=== PATIENT | male | born 1975 | race Caucasian/White ===

== ENCOUNTER 2020-08-31 01:45 | Emergency (ER) | payer OTHER, SELFPAY ==
[2020-08-31] VITALS (7 sets, daily range): BP systolic 114–135; BP diastolic 73–90; PULSE 62–66; RESP 16–18; TEMP 36.8; O2SAT 98–100; BMI 29.9
--- NOTE | 2020-08-31 02:10 | ED_ITS ---
HPI - General Adult General Chief complaint: General Medical Stated complaint: LBP Time Seen by Provider: 08/31/20 01:49 Source: patient Mode of arrival: EMS Limitations: no limitations History of Present Illness HPI narrative: patient comes to emergency room complaining of chronic back pain. Patient sustained a back injury last month in July, patient was seen in [facility] in [place]. according to the patient, he was in bed for 2 days, given pain medications, patient decided to leave against medical advice. Patient comes today to our emergency room requesting short-term rehab. Patient denies urinary /fecal retention or incontinence. patient has significant history of back surgeries, including L4/L5 decompression and microlumbar discectomy due to disc herniation in December of 2006 per previous notes MD complaint: back pain Related Data Home Medications Medication Instructions Recorded Confirmed naloxone [Narcan] 1 spray INTRANASAL 08/31/20 Allergies Allergy/AdvReac Type Severity Reaction Status Date / Time No Known Allergies Allergy Mild NKA Unverified 06/09/20 15:27 [No Known Allergies*] Review of Systems Review of Systems: Constitutional : No Weight loss, No Fever, No Chills, No Night Sweats, No Fatigue, No Malaise ENT/Mouth : No Hearing loss, No Ear Pain, No Nasal Congestion, No Sinus Pain, No Hoarseness, No sore throat, No Rhinorrhea, No Swallowing Difficulty Eyes: No Eye Pain, No Swelling, No Redness, No Foreign Body, No Discharge, No Vision Changes Cardiovascular : No Chest Pain, No SOB, No Dyspnea on Exertion, No Orthopnea, No Edema, No Palpitations Respiratory : No Cough, No Sputum, No Wheezing, No Smoke Exposure, No Dyspnea Gastrointestinal : No Nausea, No Vomiting, No Diarrhea, No Constipation, No abdominal Pain, No Hematochezia, No Melena Genitourinary : no irregular bleeding, No Dysuria, No Urinary Frequency, No Hematuria, No Urinary Incontinence, No Urgency, No Flank Pain, No Urinary Flow Changes, No Hesitancy Musculoskeletal : complaining of chronic back pain, thoracic and lumbar Skin : No Skin Lesions, No rash Neuro : No Weakness, No Numbness, No Paresthesias, No Loss of Consciousness, No Dizziness, No Headache Psych : No Anxiety/Panic, No Depression, No SI/HI/AH/VH, No Social Issues, Heme/Lymph: No Bruising, No Bleeding,No Lymphadenopathy Endocrine : No Polyuria, No Polydipsia, No Temperature Intolerance [facility] Past Medical History Medical History (Updated 08/31/20 @ 05:00 by Ness Ross MD) Hepatitis C Heroin abuse Surgical History (Updated 08/31/20 @ 02:18 by Ness Ross MD) History of lumbar laminectomy for spinal cord decompression Social History Social History Alcohol intake: former Smoking Status: Current every day smoker Use of substances other than those prescribed or required for medical reasons: Refusing to respond Substance Use Type: Heroin and IV Drugs Last Used Substance: Unknown Advance Directives: No Physical Exam Vital Signs: Vital Signs: Last Vital Signs Temp 98.3 F 08/31/20 01:47 Pulse 62 08/31/20 02:39 Resp 18 08/31/20 02:39 BP 135/90 H 08/31/20 01:47 Pulse Ox 100 08/31/20 02:39 Body Mass Index 29.9 Appearance: Alert. Oriented X3. No acute distress. patient lying down in bed, refusing to move Eyes: Pupils equal, round and reactive to light. ENT: Pharynx normal. Neck: Normal inspection. Neck supple. No lymph nodes noted. No crepitus CVS: Normal heart rate and rhythm. Pulses normal. Normal S1 and S2 Respiratory: No respiratory distress. Breath sounds normal. Abdomen: Nontender. No rigidity. No distention. good BS x4, abdominal binder in place Skin: Skin warm and dry. Normal skin color. Normal skin turgor. Extremities: No lower extremity edema. No lower extremity edema. No Lacerations. No Rash Neuro: Oriented X 3. No motor deficit. No sensory deficit. Moving all extermities. No slurred speech. Course Course Course Narrative: records from [facility] have been requested. patient has been offered Toradol for pain, patient refused, states the only thing that helps are narcotics. patient states that when he was in [facility], he was getting 2 mg of morphine every 2 hours. I discussed with the patient that we will not be doing that high dose prescription here in the emergency room. I offered a 1 time dose of 4 mg of morphine, patient accepts. patient declined Tylenol, patient declined Toradol, declined tramadol. we received records from [facility], patient was admitted on August 03, patient left against medical advice on July 27. Patient was admitted for acute on chronic back pain, patient has had stimulator device implanted in 1995. Lumbar spine CT on July 25 showed no evidence of epidural, paraspinal or extraluminal abscess and no evidence of fracture or malalignment. CT lumbar spine did show mild to moderate spinal stenosis at L4 L5 due to posterior disc bulging and face it hypertrophic changes. MRI of the lumbar spine could not be obtained because he has a neurostimulator. Discharge Plan Discharge Clinical Impression: Chronic back pain Prescriptions: No Action Narcan 4 mg/actuation spray,non-aerosol 1 spray intranasal RF: 0
--- NOTE | 2020-08-31 02:24 | PC.NURSE ---
patient arrives by cord fire after leaving ama from [facility]. Per patient they didnt do anything for me. Pt requested that he be given non-narcotic medication for pain control. Pt offered tyenol/motrin- pt refused they dont' do anything for me. Pt refused ketorolac, see note in mar. if I have to take narcotics, i will. I haven't slept in two days.
--- NOTE | 2020-08-31 03:05 | PC.NURSE ---
pt refused po tylenol and po tramadol. Per patient they gave me that at [facility] and it didn't work. They gave me morphine every two hours. Patient then stated i'm going to leave ama. Provider to bedside. 1 time dose of im morphine to be given.
[2020-08-31] MEDS: Morphine Sulfate 4 MG/ML CARTRIDGE IM (03:10)
--- NOTE | 2020-08-31 03:28 | PC.NURSE ---
pt was able to get self out of bed to shut curtain without assistance. patient reports no effect from morphine at this time. montioring for effect.
--- NOTE | 2020-08-31 03:56 | PC.NURSE ---
pt is sleeping at this itme.
[2020-08-31 05:31] LABS: Basophils Percent Auto 0.2 % (0-2); Eosinophils Absolute Auto 0.1 X10*3/uL (0.0-0.4); Hematocrit 30.4 % (42-52); Hemoglobin 10.1 g/dl (14.0-18.0); Imm Gran Abs Auto 0.02 X10*3/uL (0.00-0.03); Imm Gran Pct Auto 0.3 % (0.0-0.4); Lymphocytes Absolute Auto 1.2 X10*3/uL (1.2-4.9); Lymphocytes Percent Auto 20.6 % (20-40); Mean Corpuscular HGB Conc 33.2 g/dl (31.0-36.0); Mean Corpuscular Hemoglobin 27.8 pg (27.0-33.0); Mean Corpuscular Volume 83.7 fL (80-98); Mean Platelet Volume 8.8 fL (9.4-12.4); Monocytes Absolute Auto 0.5 X10*3/uL (0.1-1.2); Monocytes Percent Auto 8.6 % (2-11); Neutrophils Percent Auto 69.3 % (45-73); Platelet Count 382 X10*3/uL (160-400); Red Blood Count 3.63 X10*6/uL (4.60-5.80); Red Cell Distribution Width 12.1 % (11.0-16.0); White Blood Count 5.7 X10*3/uL (4.8-10.8)
[2020-08-31 05:32] LABS: MANUAL DIFF FLAG NO
[2020-08-31 06:06] LABS: Anion Gap 12 (12-20); Blood Urea Nitrogen 7 mg/dL (9-16); Calcium 7.9 mg/dL (8.4-10.2); Carbon Dioxide 26 mmol/L (22-29); Chloride 104 mmol/L (96-108); Creatinine Clr Calc Pharmacy 119.5; Estimated Glomerular Filt Rate > 60; Glucose Random 100 mg/dL (60-115); Potassium 3.7 mmol/l (3.3-5.1); Sodium 138 mmol/L (135-145)
--- NOTE | 2020-08-31 06:12 | PC.NURSE ---
pt is now awake and intermittently calling out oh fuck/oh god pt has been able to reposition self in bed without difficulty. call rabago is in reach.
[2020-08-31] MEDS: oxyCODONE HCl Immed Release 5 MG TABLET 10 MG PO ×2 (07:19→14:15)
[2020-08-31 07:37] LABS: Glucose Urine UA NEG (NEG); Leukocyte Esterase Urine NEG (NEG); Nitrite Urine NEG (NEG); Urine Blood NEG (NEG); Urine Ketones NEG (NEG); Urine Protein NEG (NEG-TRACE)
[2020-08-31 07:38] LABS: Appearance Urine CLEAR; Color Urine YELLOW
[2020-08-31 08:04] LABS: Amphetamine Screen Urine Not Detected (Not Detect); Barbiturates, Urine Not Detected (Not Detect); Benzodiazepines Screen Urine Not Detected (Not Detect); Cannabinoid Screen Urine Not Detected (Not Detect); Cocaine Screen Urine POSITIVE (Not Detect); Opiate Screen Urine POSITIVE (Not Detect); Phencyclidine Screen Urine Not Detected (Not Detect)
--- NOTE | 2020-08-31 09:10 | PC.NURSE ---
PT REFUSING TO GO TO REHAB STATES HE NEEDS SURGERY BEFORE HE CAN GO TO REHAB, HAS BEEN EXPLAINED TO PT THAT HE HAS A CHRONIC BACK CONDITION AND REHAB WILL HELP STRENGTHEN MOBILITY. PT IS VERY HOSTILE WITH STAFF CONTINUES TO STATE WE DONT KNOW WHAT WERE DOING
--- NOTE | 2020-08-31 09:21 | MHC.CM.ED ---
Addendum entered by Tiarra Lal 08/31/20 09:44: Pt is not willing to go to STR for Physical Therapy Original Note: Met with pt. Pt initially refusing to speak with CM due to pain. Pt twisting and moving in bed. Pt tells CM is will no go to STR for therapy until we fix his back. It is broken. I need surgery. I want to see a surgeon . CM rephrased his comments to be sure I understood his concerns. Restating you are refusing PT at this time until to can have surgery for your broken back and you want to see a surgeon . Pt states CM understands him. Asked pt if he was actively using drugs and he said last night. Pt tells me he is essentially homeless, staying with people . States he does not have a back doctor . Refuses to complete a HCP. When asked about recent hospitalization is [facility], pt states they did nothing for me for days and I just laid in the bed . CM told pt I would relay his concerns to the doctor. Dr. Vasques aware of this conversation and will speak with patient.
--- NOTE | 2020-08-31 09:29 | MHC.CM.ED ---
CM went with Dr. Vasques to speak with patient about STR and pt concerns. Pt stated he wanted surgery. Dr. Vasques spoke with pt at length about needing rehab, about not having a neurosurgery service at [facility], and his lack of neuro deficits that who make surgery the plan of care. Dr. Vasques asked about pt stay in [place] and tests they completed. Asked why he didn't stay there. Pt astates they did nothing for him. Pt requested to be transferred to [facility] and Dr. Vasques tried to explain that what he needed was rehab, not surgery. Pt then states he would go home and is calling is . Pt is not . Dr. Vasques will d/c pt home.
--- NOTE | 2020-08-31 10:27 | PC.NURSE ---
WENT INTO DISCHARGE PT AND NOW STATING HE WANTS TO GO TO REHAB. DR MANZO AND SAMIR[facility]EMENT AWARE
--- NOTE | 2020-08-31 10:36 | MHC.CM.ED ---
When RN attempted to d/c pt, pt stated he would go to rehab. Referrals broadcasted, as this patient my be difficult to place secondary to current IV drug use. Pt states he has never been to rehab and has no recommendations for facilities. Will continue to follow for d/c needs
[2020-08-31] MEDS: Morphine Sulfate ER 15 MG TABLET.ER PO (11:04)
--- NOTE | 2020-08-31 11:28 | MHC.CARE ---
Recovery Support note: Patient is a 45 year old [place] speaking male who presented to [facility] due to chronic back pain. Patient reports using heroin IV and states that he uses due to his level of pain. Patient reports that if he were not in pain he would not be using. Patient acknowledges the danger involved in using street drugs. Current plan is for CM to try and find a rehab for patient to strengthen his back so that his pain is reduced. Patient is agreeable at this time however expresses concern regarding whether he would get pain medication at rehab.
--- NOTE | 2020-08-31 11:28 | PC.NURSE ---
CARE TEAM IN TO ASSESS PATIENT NEEDS
--- NOTE | 2020-08-31 15:30 | PC.NURSE ---
continues to wait for bed placement at rehab
--- NOTE | 2020-08-31 15:41 | PC.NURSE ---
PATIENT REFUSED VITALS ,NURSE AWARE.
--- NOTE | 2020-08-31 15:51 | MHC.CM.ED ---
[facility] following. Waiting for authorization. Broadcasted to 18 agencies, only [facility] responded to follow. Will continue to follow for d/c needs
--- NOTE | 2020-08-31 15:57 | MHC.CM.ED ---
Pt signed out AMA. Dr. Vasques spoke with pt request him to say. Wheelchair to lobby. Pt called an uber. [facility] aware.
--- NOTE | 2020-08-31 15:57 | PC.NURSE ---
pt continues to be rude to staff, told this nurse not to come in his room untlil he could get pain medications. dr shell spoke with patient in detail about ostieomylitis and the need for iv antibiotics. pt contunued to be rude and stated he is leaving now.
== END 2020-08-31 16:01 | disposition left against medical advice (07) ==
PROVIDERS: Emergency Provider Emergency Medicine; PCP Internal Medicine
DX: G89.29 Other chronic pain (principal); M54.5 Low back pain; F11.10 Opioid abuse, uncomplicated; F17.200 Nicotine dependence, unspecified, uncomplicated
CPT/HCPCS: 36415; 80048; 80307; 81003; 85025; 96372; 97163; 99284; J2270

== ENCOUNTER 2025-03-29 14:53 | Emergency (ER) | payer OTHER, SELFPAY ==
[2025-03-29 14:57] VITALS: BP 128/75; BP 150/100; PULSE 68; PULSE 70; RESP 18; TEMP 36.7; O2SAT 97; BMI 20.4
--- NOTE | 2025-03-29 15:04 | PC.NURSE ---
patient uncooporative, not wanting to be seen in the ed, provider at bedside, pt vitals stable, speaking in full sentences, rr equal non labored. provider to discharge patient. pt currently eating a sandwich and having gingerale waiting for discharge paperwork
--- NOTE | 2025-03-29 15:05 | ED.OVERDOSE ---
HPI - Overdose General Chief Complaint: Overdose Stated Complaint: UNRESP,NARCAN GIVEN W/GOOD RESULT,DENIES DRUG USE Time Seen by Provider: 03/29/25 15:04 Source: EMS Mode of arrival: EMS History of Present Illness HPI Narrative: THIS IS A 49 YEARS OLD MALE BROUGHT IN AFTER AN OVERDOSE OF OPIOIDS HE WAS FOUND UNRESPONSIVE IN THE STREET HE WAS GIVEN NARCAN AND NOW HE IS AWAKE AND ALERT HE DOES NOT WANT TO BE HERE HE IS NOT SUICIDAL NO HOMICIDAL Onset (ago): hour(s) (1) Context: Accidental Overdose: wanted to get high Treatments Prior to Arrival: narcan Related Data Home Medications ?Medication ?Instructions ?Recorded ?Confirmed naloxone 4 mg/actuation nasal 1 spray intranasal overdose 08/31/20 spray (Narcan) Allergies Allergy/AdvReac Type Severity Reaction Status Date / Time No Known Allergies (No Known Allergy Mild NKA Verified 03/29/25 15:03 Allergies*) Review of Systems Constitutional: Constitutional: Reports no additional constitutional complaints ENT: Reports system reviewed and no additional complaints, except as documented Cardiovascular: Cardiovascular: Reports no additional cardiovascular complaints Neurologic: Reports system reviewed and no additional complaints, except as documented [facility] Past Medical History [facility] Narrative: HEP C OPIATE ABUSE Medical History Hepatitis C Heroin abuse Surgical History History of lumbar laminectomy for spinal cord decompression Social History Social History Alcohol intake: former Substance Use Type: Heroin and IV Drugs Advance Directives: No Advance Directives Information Provided: No Do you have a plan to hurt others: No Plan Physical Exam Vital Signs: Vital Signs: Last Vital Signs Temp 98.0 F 03/29/25 15:40 Pulse 68 03/29/25 15:40 Resp 18 03/29/25 15:40 BP 128/75 03/29/25 15:40 Pulse Ox 97 03/29/25 15:40 O2 Del Method Room Air 03/29/25 15:40 BMI result Body Mass Index 20.4 NO ACUTE DISTRESS Const: General: cooperative Nutritional Appearance: average body habitus Orientation/consciousness: patient oriented x3 Limitations: no limitations HEENT: Head: Yes normal to inspection General nose exam: Normal external nose present Face and sinus: Yes normal facial exam Mouth: Normal oral and palatal mucosa present Neck: Neck: Yes normal visual inspection Chest: Chest palpation & inspection: normal inspection of the chest Resp: Effort & Inspection: normal respiratory effort Auscultation: clear to auscultation bilaterally Cardio: Jugular venous distension: no JVD Rate: regular rate GI: Inspection: Yes normal to inspection Palpation (GI): Soft to palpation Percussion: Yes normal to percussion Skin: General skin exam: no rashes or lesions noted Neuro: General: patient oriented x3 Cranial nerves: Yes CN's II-XII intact bilaterally Course Reevaluation(s) Reevaluation #1: PATIENT DOES NOT WANT TO BE HERE HE HAS DECISION MAKING CAPACITY HE WANTS TO SIGN AGAINST MEDICAL ADVICE SIGN AMA HE UNDERSTANDS THE RISK Time: 15:07 Medical Decision Making Medical Decision Making [facility] Narrative: PATIENT PRESENTED AFTER AN OVERDOSE OF OPIOIDS HE WAS GIVEN NARCAN IN THE FIELD HE IS NOW AWAKE AND ALERT REQUESTING DISCHARGE Differential Diagnosis OPIATE OVERDOSE Independent Historian Clinical information obtained from an independent historian. History obtained from or confirmed by: EMS Chronic Conditions Patient?s care impacted by: Other (SUBSTANCE ABUSE) Discharge Plan Discharge Clinical Impression: Drug overdose Qualifiers: Encounter type: initial encounter Injury intent: accidental or unintentional Qualified Code(s): T50.901A - Poisoning by unspecified drugs, medicaments and biological substances, accidental (unintentional), initial encounter Patient Disposition: Left Against Medical Advice Instructions: Adult Overdose (ED) Prescriptions: No Action Narcan 4 mg/actuation spray,non-aerosol 1 spray intranasal Interventions: ED Discharge Assessment Last Done: 03/29/25 15:40 Discharge Date/Time: 03/29/25 15:43 Print Language: Romansh
--- NOTE | 2025-03-29 15:22 | PC.NURSE ---
pt is being discharged AMA
[2025-03-29 15:40] VITALS: BP 128/75; PULSE 68; RESP 18; TEMP 36.7; O2SAT 97
--- OUTSIDE RECORDS SUMMARY | 2025-03-29 15:41 | XMS_ITS | Clinical Summary ---
Author Organization [facility] Facility Address [address] [place] [address], [place] [address] Care Team Providers Care Hook And Eye Attacher Name Role Phone Unavailable Primary Care Provider Unavailabl e Social History Tobacco Use Types Packs/Day Years Used Date Smoking Tobacco: Never Assessed Sex and Gender Information Value Date Recorded Sex Assigned at Not on file Legal Sex Male 11:57 AM EST Gender Identity Not on file Sexual Orientation Not on file Plan of Treatment Health Maintenance Due Date Last Done Comments Hepatitis B Vaccine (1 of 3 - 19+ 3-dose series) 07/28 Colorectal Cancer Screening: Annual FOBT 2023 Colorectal Cancer Screening: Colonoscopy 2023 Colorectal Cancer Screening: Sigmoidoscopy 2023 Pneumococcal Vaccine: 50+ Years (1 of 1 - PCV) 024 Influenza Vaccine (#1) [address] [place] [address] [employer]
--- OUTSIDE RECORDS SUMMARY | 2025-03-29 15:41 | XMS_ITS | Encounter Summary ---
Author Organization [employer] Address [address] [place] [address] Care Team Providers Care Information Management Officer Name Role Phone Unavailable Primary Care Provider Unavailabl e Encounter Details Date Type Department Care Team ([facility] st Contact Info) Description 12/19/2022 Abstract [facility] [address] [place] [address] Carlos Bennett, DMD [address] [place] [address] Social History Tobacco Use Types Packs/Day Years Used Date Smoking Tobacco: Every Day Cigarettes Smokeless Tobacco: Never Alcohol Use Standard Drinks/Week Comments Never 0 (1 standard drink = 0.6 oz pur e alcohol) Sex and Gender Information Value Date Recorded Sex Assigned at Male 07/23/2022 10:17 AM EDT Legal Sex Male 10:17 AM EDT Gender Identity Male 07/23/2022 10:17 AM EDT Sexual Orientation Choose not to disclose 2021 10:17 AM EDT COVID-19 Exposure Response Date Recorded In the last 10 days, have yo u been in contact with someone who was confirmed or suspected to have Coronavirus/COVID-19? No / Unsure 12/19/2022 10:55 AM EDT documented as of this encounter Plan of Treatment Not on file documented as of this encounter Visit Diagnoses Not on filedocumented in this encounter
== END 2025-03-29 15:43 | disposition left against medical advice (07) ==
LOC: HO.ED 15:25
PROVIDERS: Emergency Provider Emergency Medicine
DX: R40.4 Transient alteration of awareness (principal); F11.10 Opioid abuse, uncomplicated; B19.20 Unspecified viral hepatitis C without hepatic coma
CPT/HCPCS: 99282